=== PATIENT | female | born 2005 | race Hispanic/Latino ===

== ENCOUNTER 2024-03-14 13:53 | Emergency (ER) | payer SELFPAY ==
[~2024-03-14] VITALS: Ht 162.6 cm; Wt 68.0 kg
[2024-03-14 14:31] LABS: BASOPHILS # (AUTO) 0.02 K/uL (0.00-0.20); BASOPHILS % (AUTO) 0.2 % (0.0-5.0); EOSINOPHILS # (AUTO) 0.16 K/uL (0.00-0.70); EOSINOPHILS % (AUTO) 1.2 % (0.0-8.0); HEMATOCRIT 40.5 % (36-48); IMMATURE GRANULOCYTE ABSOLUTE 0.04 K/uL (0-1); LYMPHOCYTES # (AUTO) 1.6 K/uL (1.0-4.8); LYMPHOCYTES % (AUTO) 12.1 % (21.0-51.0); MEAN CORPUSCULAR HEMOGLOBIN 27.2 pg (27.0-33.0); MEAN CORPUSCULAR HGB CONC 33.1 g/dL (32.0-36.0); MEAN CORPUSCULAR VOLUME 82.3 fL (80-100); MONOCYTES # (AUTO) 0.4 K/uL (0.1-1.0); MONOCYTES % (AUTO) 3.1 % (3.0-13.0); NEUTROPHILS # (AUTO) 10.8 K/uL (1.8-7.7); NEUTROPHILS % (AUTO) 83.1 % (40.0-77.0); PLATELET COUNT (AUTO) 304 K/uL (130-400); RED BLOOD CELL COUNT(AUTO) 4.92 MIL/uL (4.00-5.50)
[2024-03-14 14:52] LABS: CREATININE 1.1 mg/dL (0.5-1.0); POTASSIUM 3.8 mmol/L (3.5-5.1)
[2024-03-14] MEDS: DiphenhydrAMINE HCL 50 MG/ML VIAL IV ONE (14:55)
[2024-03-14] MEDS: FAMOTIDINE 20MG VIAL IV ONE (14:55)
[2024-03-14] MEDS: EPINEPHRINE PF 1MG (1:1,000) 1 MG/ML AMP IM ONE (14:55)
[2024-03-14] MEDS: SOLU-MEDROL 125MG VIAL IVP ONE (14:55)
[2024-03-14] MEDS: 0.9%NACL 1000ML 1,000 ML IV ONE (15:53)
[2024-03-14] MEDS ORDERED: FAMO-136 PO (17:58)
[2024-03-14 17:59] VITALS: BP 105/60; PULSE 90; RESP 18; O2SAT 98
== END 2024-03-14 18:16 | disposition home or self-care (01) ==
LOC: EDH 13:53
DX: T78.40XA Allergy, unspecified, initial encounter (principal); X58.XXXA Exposure to other specified factors, initial encounter
CPT/HCPCS: 99285; 96374; 96375; 96361; 80048; 85025; 81025; 36415; 96372; J1200; J3490; J7030; J2919; J0171